=== PATIENT | male | born 1970 | race Caucasian/White ===

== ENCOUNTER 2022-05-28 14:00 | Inpatient (IN) | payer OTHER, SELFPAY ==
[2022-05-28 14:36] VITALS: BP 94/58; PULSE 81; RESP 16; TEMP 36; O2SAT 93; BMI 30.9
--- NOTE | 2022-05-28 15:20 | HP.PCM_ITS ---
HPI - General General Date of Admission: 05/28/22 Date of Service: 05/28/22 Chief Complaint: Here for rehabilitation, strengthening, prior to discharge home with . HPI Narrative CARMEL PETER, is a 52 Male who presents with followin04/28/2022 Admit to [facility] with mitral regurgitation, aortic insufficiency. 04/28/2022 1. Mechanical mitral valve replacement 2. Mechanical aortic valve replacement 3. Ascending aorta replacement 4. Aortic arch replacement 5. Complete MAZE 04/28/2022 Anterior chest tubes placed. 05/02/2022 Epinephrine, Levophed, Vasopressin, SVR persistently 500's. Atrial flutter treated with amiodarone bolus x 2, then amiodarone drip. 05/06/2022 Extubated, drowsy, unable to clear secretions. Reintubated in 2 hours. 05/09/2022 Extubated, BiPAP applied. 05/12/2022 Anterior chest tubes removed. 05/25/2022 Hemoglobin 7.0; 7.4. 05/26/2022 Hemoglobin 7.3. 05/27/2022 Acute blood loss anemia and iron deficiency anemia. H&H low but stable, remains above transfusion threshold. Continue iron supplementation. 05/27/2022 Hemoglobin 6.9. Transfuse 1 unit PRBC. 05/28/2022 Admit to TCU with debility, here for rehabilitation, strengthening, prior to discharge home with . [facility] Medical History (Updated 05/28/22 @ 15:[address] Sergio Kim MD) Alcohol abuse Aortic insufficiency Ascending aorta dilatation Atrial fibrillation Congenital heart disease Debility Hyperlipidemia Hypertension Mitral regurgitation Nonischemic cardiomyopathy Severe pulmonary hypertension Home Medications acetaminophen 325 mg tablet 325 mg PO Q6H PRN Pain 05/28/22 [History Last Taken Unknown] amiodarone 200 mg tablet 200 mg PO DAILY Heart 05/28/22 [History Last Taken Unknown] ascorbic acid (vitamin C) 500 mg tablet 500 mg PO DAILY Supplement 05/28/22 [History Last Taken Unknown] atorvastatin 40 mg tablet 40 mg PO QHS Cholesterol 05/28/22 [History Last Taken Unknown] ferrous sulfate 325 mg (65 mg iron) tablet 325 mg PO BID Supplement 05/28/22 [History Last Taken Unknown] lactulose 10 gram/15 mL oral syrup 20 g PO BID Check with primary doctor 05/28/22 [History Last Taken Unknown] metoprolol succinate 25 mg tablet,extended release 24 hr 25 mg PO DAILY BP 05/28/22 [History Last Taken Unknown] sildenafil 100 mg tablet 100 mg PO DAILY BP 05/28/22 [History Last Taken Unknown] tamsulosin 0.4 mg capsule 0.4 mg PO DAILY Retention 05/28/22 [History Last Taken Unknown] torsemide 20 mg tablet 40 mg PO DAILY Heart 05/28/22 [History Last Taken Unknown] trazodone 50 mg tablet 50 mg PO QHS Sleep 05/28/22 [History Last Taken Unknown] warfarin 2.5 mg tablet 2.5 mg PO DAILY Blood Thinner 05/28/22 [History Last Taken Unknown] Family History (Updated 05/28/22 @ 15:[address] Sergio Kim MD) Father Cancer Lung Surgical History (Updated 05/28/22 @ 15:[address] Sergio Kim MD) History of aortic arch replacement History of ascending aortic replacement History of implantable cardiac defibrillator (ICD) History of maze procedure History of mechanical aortic valve replacement History of mitral valve replacement with bioprosthetic valve History of mitral valve replacement with mechanical valve History of prior ablation treatment History of repair of congenital atrial septal defect (ASD) Social History (Updated 05/28/22 @ 15:[address] Sergio Kim MD) household members: spouse Smoking Status: Never smoker alcohol intake: current alcohol intake frequency: 3 or more drinks per day Alcohol type: beer details: Alcoholic. substance use type: does not use ROS Constitutional Constitutional: Denies chills, fever(s) or weight gain Eyes Eyes: Reports loss of vision ENT HEENT: Denies headache(s), nasal congestion or nasal discharge Cardiovascular Cardiovascular: Denies chest pain or palpitations Respiratory/Chest Respiratory/Chest: Denies cough, excessive phlegm production or shortness of breath with exertion Gastrointestinal Gastrointestinal: Denies abdominal pain, nausea or vomiting Genitourinary Genitourinary: Denies dysuria Musculoskeletal Musculoskeletal: Denies joint pain or joint swelling Integumentary Integumentary: Denies rash or wounds Neurologic Neurologic: Denies focal weakness, numbness or tingling Psychiatric Psychiatric: Denies anxiety, auditory hallucinations, depression, homicidal ideation or suicidal ideation Physical Exam Const alert General Appearance: cooperative HEENT normocephalic Eyes PERRL and EOMs intact bilaterally Neck supple, no JVD and no carotid bruits Resp normal respiratory effort, normal air movement and clear to auscultation bilaterally Cardio regular rate and regular rhythm GI normal to inspection, nondistended, normoactive bowel sounds, non-tender and non-distended Extremity normal capillary refill General Extremity: Negative for edema Skin no rashes or lesions noted General Skin Exam: no breakdown Psych affect normal Appearance: appropriate Assessment & Plan Assessment/Plan (1) Debility: (2) Mitral regurgitation: (3) Aortic insufficiency: (4) Alcohol abuse: (5) Hypertension: (6) Hyperlipidemia: (7) Atrial fibrillation: (8) Congenital heart disease: (9) Nonischemic cardiomyopathy: (10) Ascending aorta dilatation: (11) Severe pulmonary hypertension: PLAN: Plan 52 year old male with below past medical history hospitalized for mechanical MVR, mechanical AVR, ascending aorta replacement, aortic arch replacement, MAZE procedure, complicated by anemia requiring transfusion, admitted to TCU with debility, here for rehabilitation, strengthening, prior to discharge home with . * Debility - PT/OT. * Dysphagia - ST. * Pain - Tylenol 1000mg q6h prn pain (1-10). * Bowel - Lactulose 20gm bid. * Adult immunization - Administer pneumonia vaccine, covid19 vaccine, flu vaccine as appropriate. * DVT prophylaxis - already on warfarin. * Atrial fibrillation - Metoprolol succinate 25mg daily, Amiodarone 200mg daily, Warfarin 2.5mg daily, monitor INR. * Postoperative anemia - Ferrous sulfate 325mg bid, Vitamin C 500mg daily thru 06/12/2022. * Hyperlipidemia - Atorvastatin 40mg qhs. * Severe pulmonary hypertension - Sildenafil 100mg daily. * BPH - Tamsulosin 0.4mg daily. * Chronic diastolic heart failure - Metoprolol succinate 25mg daily, Torsemide 40mg daily, 1500ml fluid restriction. * Insomnia - Trazodone 50mg qhs, stable chronic nursing home use, GDR not recommended. * Vision loss - Schedule Ophth appointment.
[2022-05-28] MEDS: Ferrous Sulfate 325 MG Tablet PO (17:19)
[2022-05-28] MEDS: Lactulose 20 GM/30 ML PHA UDC PO (17:19)
--- NOTE | 2022-05-28 17:39 | NURSING ---
Warfarin order verified with Dr. Kim order was 12.5mg of Warfarin daily per Dr. Kim change to 5mg daily and Check INR daily until therapeutic.
[2022-05-28] MEDS: traZODone 50 MG Tablet PO (21:14)
[2022-05-28] MEDS: Atorvastatin Calcium 40 MG Tablet PO (21:14)
[2022-05-28] MEDS: Acetaminophen 325 MG Tablet PO (21:18)
[2022-05-28] MEDS: guaiFENesin Dm 10 ML UDC PO (23:37)
[2022-05-29] MEDS: Acetaminophen 325 MG Tablet PO (06:16)
[2022-05-29 06:17] VITALS: BP 100/61; PULSE 79
[2022-05-29] MEDS: Amiodarone 200 MG Tablet PO (06:17)
[2022-05-29] MEDS: Metoprolol(XL)Succ 25 MG Tablet PO (06:17)
[2022-05-29] MEDS: Lactulose 20 GM/30 ML PHA UDC PO ×2 (06:17→16:58)
[2022-05-29] MEDS: Furosemide 80 MG Tablet PO (06:17)
[2022-05-29 08:04] VITALS: BMI 30.9
[2022-05-29 08:05] LABS: Absolute Lymphocyte Count 1.27 X10^3/uL (0.83-4.51); Absolute Neutrophil Count 5.9 X10^3/uL (2.0-7.7); Basophil# 0.04 X10^3/uL; Basophil% 0.5 % (0-1); Eosinophils% 5.7 % (0-5); Hematocrit 26.9 % (40-54); Hemoglobin 8.3 g/dL (13.0-16.5); Lymphocyte # 1.27 X10^3/ul (0.83-4.51); Lymphocyte % 14.5 % (19-41); Mean Corp Hgb Conc 30.9 g/dL (32-36); Mean Corpuscular Hgb 25.5 pg (27.0-32.0); Mean Corpuscular Volume 82.8 fL (80-94); Mean Platelet Vol. 8.7 fl (6.2-12.0); Monocyte# 0.97 X10^3/uL; Monocyte% 11.1 % (0-10); NRBC Flagged by Analyzer 0 % (0-5); Neutrophil # 5.85 X10^3/uL (2.7-7.7); Neutrophil % 66.8 % (47-70); Platelet Count 334 K/mm3 (150-450); RBC Distribution Width CV 16.1 % (11.6-14.6); Red Blood Count 3.25 M/mm3 (4.6-6.2); White Blood Count 8.8 K/mm3 (4.4-11.0)
[2022-05-29] MEDS: Ferrous Sulfate 325 MG Tablet PO ×2 (08:18→16:58)
[2022-05-29] MEDS: Ascorbic Acid 500 MG Tablet PO (08:18)
[2022-05-29] MEDS: Tamsulosin HCl 0.4 MG Capsule PO (08:18)
[2022-05-29] MEDS: guaiFENesin Dm 10 ML UDC PO ×2 (08:40→21:38)
[2022-05-29 08:48] LABS: Anion Gap 7 (5-15); BUN 27 mg/dL (7-18); BUN/Creat Ratio 28.3 RATIO (10-20); Calcium,Total 8.6 mg/dL (8.5-10.1); Chloride 96 mmol/L (98-107); Creatinine, Serum 0.96 mg/dL (0.70-1.30); EST Glomerular Filtration Rate 88 mL/min (>60); Est Glom Filt Rate - Afr Amer 106 mL/min (>60); Estimated Creatinine Clearance 100.57 ml/min; Glucose 106 mg/dL (74-106); Potassium 3.6 mmol/L (3.5-5.1); Sodium Level 130 mmol/L (136-145)
[2022-05-29 09:05] LABS: International Normalized Ratio 3.7; Prothrombin Time (Protime)PT. 36.4 SECONDS (11.7-14.9)
[2022-05-29] MEDS: Tuberculin,Purif.prot.deriv. 50 TU/ML Vial 0.1 ML ID (10:26)
[2022-05-29] MEDS: traMADol 50 MG Tablet PO ×2 (14:01→21:30)
[2022-05-29] MEDS: Acetaminophen 500 MG Tablet 1000 MG PO ×2 (14:01→21:31)
[2022-05-29 14:02] VITALS: BP 96/56; PULSE 80; RESP 18; TEMP 36.1; O2SAT 96
[2022-05-29 21:00] VITALS: PULSE 80; RESP 18; O2SAT 94
[2022-05-29] MEDS: Atorvastatin Calcium 40 MG Tablet PO (21:31)
[2022-05-29] MEDS: traZODone 50 MG Tablet PO (21:32)
[2022-05-30] MEDS: Acetaminophen 500 MG Tablet 1000 MG PO ×3 (05:46→21:05)
[2022-05-30 05:47] VITALS: BP 97/61; PULSE 78
[2022-05-30 05:47] LABS: Absolute Neutrophil Count 5.6 X10^3/uL (2.0-7.7); Basophil# 0.04 X10^3/uL; Basophil% 0.5 % (0-1); Eosinophil# 0.52 X10^3/uL; Eosinophils% 6.3 % (0-5); Hematocrit 27.1 % (40-54); Hemoglobin 8.2 g/dL (13.0-16.5); Lymphocyte % 15.7 % (19-41); Mean Corp Hgb Conc 30.3 g/dL (32-36); Mean Corpuscular Hgb 25.1 pg (27.0-32.0); Mean Corpuscular Volume 82.9 fL (80-94); Mean Platelet Vol. 8.8 fl (6.2-12.0); Monocyte# 0.79 X10^3/uL; Monocyte% 9.5 % (0-10); NRBC Flagged by Analyzer 0 % (0-5); Neutrophil # 5.55 X10^3/uL (2.7-7.7); Neutrophil % 66.8 % (47-70); Platelet Count 323 K/mm3 (150-450); RBC Distribution Width SD 48.6 fl (35.1-43.9); Red Blood Count 3.27 M/mm3 (4.6-6.2); White Blood Count 8.3 K/mm3 (4.4-11.0)
[2022-05-30] MEDS: Amiodarone 200 MG Tablet PO (05:47)
[2022-05-30] MEDS: Lactulose 20 GM/30 ML PHA UDC PO (05:47)
[2022-05-30] MEDS: Furosemide 80 MG Tablet PO (05:47)
[2022-05-30 06:14] LABS: Anion Gap 8 (5-15); BUN 23 mg/dL (7-18); Calcium,Total 8.5 mg/dL (8.5-10.1); Chloride 97 mmol/L (98-107); Creatinine, Serum 0.74 mg/dL (0.70-1.30); EST Glomerular Filtration Rate 117 mL/min (>60); Est Glom Filt Rate - Afr Amer 142 mL/min (>60); Estimated Creatinine Clearance 130.47 ml/min; Glucose 94 mg/dL (74-106); Potassium 3.5 mmol/L (3.5-5.1); Sodium Level 133 mmol/L (136-145)
[2022-05-30] MEDS: Ascorbic Acid 500 MG Tablet PO (08:33)
[2022-05-30] MEDS: Tamsulosin HCl 0.4 MG Capsule PO (08:33)
[2022-05-30] MEDS: Ferrous Sulfate 325 MG Tablet PO ×2 (08:33→16:15)
[2022-05-30] MEDS: guaiFENesin Dm 10 ML UDC PO ×3 (08:33→21:06)
[2022-05-30 10:29] LABS: Prothrombin Time (Protime)PT. 40.3 SECONDS (11.7-14.9)
[2022-05-30 10:35] LABS: International Normalized Ratio 4.2
[2022-05-30 14:27] VITALS: BP 103/59; PULSE 80; RESP 17; TEMP 35.9; O2SAT 99
[2022-05-30] MEDS: traZODone 50 MG Tablet PO (21:05)
[2022-05-30] MEDS: Atorvastatin Calcium 40 MG Tablet PO (21:05)
[2022-05-30] MEDS: traMADol 50 MG Tablet PO (21:06)
[2022-05-31] MEDS: traMADol 50 MG Tablet PO (05:49)
[2022-05-31] MEDS: Acetaminophen 500 MG Tablet 1000 MG PO ×3 (05:49→21:29)
[2022-05-31] MEDS: Furosemide 80 MG Tablet PO (05:49)
[2022-05-31] MEDS: Lactulose 20 GM/30 ML PHA UDC PO ×2 (05:50→17:33)
[2022-05-31] MEDS: Amiodarone 200 MG Tablet PO (05:50)
[2022-05-31 05:53] VITALS: BP 101/64; PULSE 80
[2022-05-31] MEDS: Metoprolol(XL)Succ 25 MG Tablet PO (05:53)
[2022-05-31] MEDS: Ferrous Sulfate 325 MG Tablet PO ×2 (08:18→17:33)
[2022-05-31] MEDS: Tamsulosin HCl 0.4 MG Capsule PO (08:18)
[2022-05-31] MEDS: Ascorbic Acid 500 MG Tablet PO (08:18)
[2022-05-31 11:31] LABS: International Normalized Ratio 3.9
--- NOTE | 2022-05-31 12:08 | PCM.PN.DRR ---
TCU RX Drug Regimen Review Subjective: 52 YOM admitted to TCU 05/28/22 S/P prolonged hospitalization at [facility]. Patient was at [facility] for valve replacements. Admitted to TCU for strengthening and rehabilitation prior to discharge home where he resides with his . Objective: Allergies bee venom protein (honey bee) [bee sting] Allergy (Verified 05/28/22 16:30) Swelling mushroom [mushrooms] Allergy (Verified 05/28/22 16:30) Vomiting Current Medications Generic Name Dose Route Start Last Admin Trade Name Freq PRN Reason Stop Dose Admin Acetaminophen 1,000 mg 05/29/22 14:00 05/31/22 05:49 Acetaminophen 500 Mg Tablet PO 1,000 mg Q8 MARK Administration Amiodarone HCl 200 mg 05/29/22 06:00 05/31/22 05:50 Amiodarone 200 Mg Tablet PO 200 mg DAILY MARK Administration Ascorbic Acid 500 mg 05/29/22 08:00 05/31/22 08:18 Ascorbic Acid 500 Mg Tablet PO 06/12/22 08:01 500 mg DAILYCM MARK Administration Atorvastatin Calcium 40 mg 05/28/22 22:00 05/30/22 21:05 Atorvastatin Calcium 40 Mg Tablet PO 40 mg QHS MARK Administration Ferrous Sulfate 325 mg 05/28/22 17:00 05/31/22 08:18 Ferrous Sulfate 325 Mg Tablet PO 06/11/22 17:01 325 mg BIDCM MARK Administration Furosemide 80 mg 05/29/22 06:00 05/31/22 05:49 Furosemide 80 Mg Tablet PO 80 mg DAILY MARK Administration Guaifenesin 10 ml 05/28/22 21:08 05/30/22 21:06 Guaifenesin Dm 10 Ml Udc PO 10 ml Q6H PRN PRN Administration COUGH Lactulose 20 gm 05/28/22 18:00 05/31/22 05:50 Lactulose 20 Gm/30 Ml Pha Udc PO 05/31/22 18:01 20 gm BID MARK Administration Metoprolol Succinate 25 mg 05/29/22 06:00 05/31/22 05:53 Metoprolol(Xl)Succ 25 Mg Tablet PO 25 mg DAILY MARK Administration Tamsulosin HCl 0.4 mg 05/29/22 08:30 05/31/22 08:18 Tamsulosin Hcl 0.4 Mg Capsule PO 0.4 mg DAILY@0830 MARK Administration Tramadol HCl 50 mg 05/29/22 13:27 05/31/22 05:49 Tramadol 50 Mg Tablet PO 50 mg Q6H PRN PRN Administration Pain Score 4-10 Trazodone HCl 50 mg 05/28/22 22:00 05/30/22 21:05 Trazodone 50 Mg Tablet PO 50 mg QHS MARK Administration Tuberculin PPD 0.1 ml 06/05/22 10:00 Tuberculin,Purif.Prot.Deriv. 50 Tu/Ml Vial ID 06/05/22 10:01 X1 ONE Problem List (Last Updated 05/28/22 @ 15:[address] Sergio Kim MD) Severe pulmonary hypertension (Acute) Ascending aorta dilatation (Acute) Nonischemic cardiomyopathy (Acute) Congenital heart disease (Acute) Atrial fibrillation (Acute) Hyperlipidemia (Acute) Hypertension (Chronic) Alcohol abuse (Acute) Aortic insufficiency (Acute) Mitral regurgitation (Acute) Debility (Acute) Vital Signs Temp Pulse Resp BP Pulse Ox O2 Del Method 96.7 F L 80 17 101/64 99 Room Air 05/30/22 14:27 05/31/22 05:53 05/30/22 14:27 05/31/22 05:53 05/30/22 14:27 05/30/22 14:27 Oxygen Delivery Method Room Air Weight: 106.141 kg Body Mass Index (BMI) 30.9 Sodium 133 mmol/L (136-145) L 05/30/22 05:35 Potassium 3.5 mmol/L (3.5-5.1) 05/30/22 05:35 Chloride 97 mmol/L (98-107) L 05/30/22 05:35 Carbon Dioxide 28.0 mmol/L (21.0-32.0) 05/30/22 05:35 Anion Gap 8 (5-15) 05/30/22 05:35 BUN 23 mg/dL (7-18) H 05/30/22 05:35 Creatinine 0.74 mg/dL (0.70-1.30) 05/30/22 05:35 Est GFR (MDRD) Af Amer 142 mL/min (>60) 05/30/22 05:35 Est GFR (MDRD) Non-Af 117 mL/min (>60) 05/30/22 05:35 BUN/Creatinine Ratio 31.0 RATIO (10-20) H 05/30/22 05:35 Glucose 94 mg/dL (74-106) 05/30/22 05:35 Assessment/Plan: 1. Pain: Tylenol 1000mg PO Q8h, Tramadol 50mg PO Q6h PRN Pain 4-10. Please continue to monitor for increased/decreased S/S pain, PRN medication usage, oversedation with Tramadol use. Please consider obtaining LFTs given scheduled Tylenol use and history of alcohol abuse, thank you. 2.Atrial Fibrillation, S/P valve replacements, CHF: Amiodarone 200mg PO Daily, Lipitor 40mg PO QHS, Lasix 80mg PO Daily, Toprol XL 25mg PO Daily. Please continue to monitor BP (range 94-103/56-64), pulse (range 78-81), lipid panel annually or sooner if clinically indicated. Please continue to monitor INR closely and resume Warfarin once INR within therapeutic range again (Note: Warfarin held d/t increased INR, INR 3.9 today). 3. Post Operative Anemia: Ferrous sulfate 325mg PO BID thru 06/11/22 and ascorbic acid 500mg PO Daily thru 06/12/22. Please continue to monitor for upset stomach/nausea, H/H (last hgb 8.2, Hct 27.1 on 05/30), S/S bleeding. 4. BPH: Flomax 0.4mg PO Daily. Please continue to monitor urinary flow, S/S urinary retention, BP. 5. Cough: Guaifenesin 10mL PO Q6h PRN. Please continue to monitor for medication effectiveness, S/S developing infection. 6. Insomnia: Trazodone 50mg PO QHS. Please continue to monitor medication effectiveness, heart rate, BP. 7. Bowel: Lactulose 20g PO BID. Please continue to monitor I/O, electrolytes as clinically indicated. - The patient has not had a documented bowel movement since admission. Please continue to monitor and consider giving medications to help facilitate a bowel movement if the patient does not have a BM in another 24hrs, thank you. Assessment/Plan for indications treated with psychotropic medications: The patient is not currently on any psychotropic medications at time of review. Medical chart and medication regimen reviewed. The following medication irregularities or issues were identified: 1. Pain: On Tylenol 1000mg PO Q8h. Patient with history of alcohol abuse. Please consider obtaining LFTs given scheduled Tylenol use and history of alcohol abuse if clinically indicated, thank you. 2. Warfarin: INR was elevated, INR today is 3.9, which is still above goal range. Please continue to monitor INR daily and resume once in therapeutic range, thank you. 3. Pulmonary Hypertension: Per H/P, patient has pulmonary hypertension. Per H/P, pt taking sildenafil 100mg PO Daily for this. Medication is not ordered and active on medication list. If patient is to be on this medication, please order, thank you. Date of Note:: 05/31/22
[2022-05-31] MEDS: guaiFENesin Dm 10 ML UDC PO ×2 (13:26→21:29)
--- NOTE | 2022-05-31 14:22 | NURSING ---
COVID 19 booster offered and education about vaccine provided. Resident does not want at this time.
[2022-05-31 14:32] VITALS: BP 102/60; PULSE 80; RESP 16; TEMP 36.1; O2SAT 97
--- NOTE | 2022-05-31 15:25 | CASEMGMT ---
Social Work Met with patient to complete initial assessment. Introduced self and role. Updated contacts. Discussed code status and MOLST form. Pt confirms full code. MOLST placed in folder. Educated to [facility] insurance with NRD 06/04 and continued stay is not guaranteed. Pt's goal is to return home closer to PLOF and be able to return to work. works daytime caregiver as well. SW offered assistance with finances or FMLA, if needed. Pt denied stating he has it taken care of. See SW assessment for details on alcohol use. Pt provided home phone number for . SW called the number provided and the voicemail was unidentified. SW left generic message requesting return call. Pt has no other contacts listed in chart. SW to continue to follow for DC planning. ALEX AmbrizW
--- NOTE | 2022-05-31 16:39 | CHAPLAIN ---
Type of Pastoral Visit _x__ Initial Visit ___ Follow-up Visit ___ On-call Visit ___ General Patient Visit ___ Spiritual Assessment ___ Family Conference ___ Bereavement ___ Rapid Response ___ Code Blue ___ Other (describe below) Pastoral Care Referral From _x__ Patient ___ Family ___ Nurse ___ Physician ___ After School Counselor ___ Cpc ___ Other (describe below) Sacrament/Intervention _x__ Active listening ___ Anointing ___ Holiness ___ Bereavement ___ Communion ___ Nayeli exploration ___ _x__ Life review _x__ Prayer ___ Reconciliation ___ Sacrament of Sick _x__ Supportive presence ___ Wedding ___ Other (describe below) Pastoral Comments patient is resting in bed; pt gives some details on health. surgery, and rehab of recent weeks; pt has had some hallucinations while in the hospital and has some concerns about that and the difficulty he is having with vision in one eye; pt states his greatest support and help is family; pt does not express other resources for support but is open to visits and prayer; pt began to cough and so visit ended as not to exasperate the situation; pt states he will be fine and has call button in hand
[2022-05-31 21:00] VITALS: PULSE 83; RESP 16; O2SAT 95
[2022-05-31] MEDS: Atorvastatin Calcium 40 MG Tablet PO (21:29)
[2022-05-31] MEDS: traZODone 50 MG Tablet PO (21:29)
[2022-06-01 05:56] VITALS: BP 109/59; PULSE 79
[2022-06-01] MEDS: Metoprolol(XL)Succ 25 MG Tablet PO (05:56)
[2022-06-01] MEDS: Acetaminophen 500 MG Tablet 1000 MG PO ×3 (05:57→20:27)
[2022-06-01] MEDS: Amiodarone 200 MG Tablet PO (05:57)
[2022-06-01] MEDS: Furosemide 80 MG Tablet PO (05:57)
[2022-06-01 06:00] VITALS: BMI 30.7
[2022-06-01] MEDS: Ascorbic Acid 500 MG Tablet PO (07:52)
[2022-06-01] MEDS: Ferrous Sulfate 325 MG Tablet PO ×2 (07:52→17:53)
[2022-06-01] MEDS: Tamsulosin HCl 0.4 MG Capsule PO (07:52)
[2022-06-01 09:16] VITALS: PULSE 83; O2SAT 98
[2022-06-01 09:34] LABS: International Normalized Ratio 3.7; Prothrombin Time (Protime)PT. 36.3 SECONDS (11.7-14.9)
[2022-06-01] MEDS: traMADol 50 MG Tablet PO (11:49)
[2022-06-01 14:42] VITALS: BP 100/55; PULSE 80; RESP 16; TEMP 36.4; O2SAT 94
[2022-06-01 15:00] VITALS: BMI 30.7
[2022-06-01] MEDS: Atorvastatin Calcium 40 MG Tablet PO (20:27)
[2022-06-01] MEDS: guaiFENesin Dm 10 ML UDC PO (20:27)
[2022-06-01] MEDS: traZODone 50 MG Tablet PO (20:27)
[2022-06-02 05:48] LABS: International Normalized Ratio 2.5
[2022-06-02 06:00] VITALS: BMI 30.9
[2022-06-02 06:20] VITALS: BP 105/57; PULSE 80
[2022-06-02 06:23] VITALS: PULSE 80
[2022-06-02] MEDS: Metoprolol(XL)Succ 25 MG Tablet PO (06:23)
[2022-06-02] MEDS: Furosemide 80 MG Tablet PO (06:23)
[2022-06-02] MEDS: Amiodarone 200 MG Tablet PO (06:23)
[2022-06-02] MEDS: Acetaminophen 500 MG Tablet 1000 MG PO ×3 (06:23→21:36)
[2022-06-02] MEDS: Tamsulosin HCl 0.4 MG Capsule PO (07:59)
[2022-06-02] MEDS: Ascorbic Acid 500 MG Tablet PO (07:59)
[2022-06-02] MEDS: Ferrous Sulfate 325 MG Tablet PO ×2 (07:59→17:29)
--- NOTE | 2022-06-02 08:29 | NURSING ---
Lasting Floorworker Note; Activity Asset: Dawson Ruano is independent in his choice of daily activities. Alden stated he prefers to do his own activities in his room at this time such as watching TV, resting or visiting w/family. His family will bring his cellphone and reading glass. Staff will continue to do social visit and encourage small group activities for social well-being.
[2022-06-02 09:15] VITALS: O2SAT 98
--- NOTE | 2022-06-02 12:16 | CASEMGMT ---
Plan of care meeting held today with pt and pt present. IDT team reviewed therapy progress with PT/OT/ST. Per therapy, pt continues to progress but does fatigue quickly. At time of discharge pt plans to return home. Pt states she does work nights and pt sister will come during the day to assist pt as needed while sleeps. states they have a village to assist pt once he returns home. Goal if for pt to be as independent as possible prior to return home. SW updated pt that NRD with insurance is 06/04 and continued stay is not guaranteed. SW will continue to follow for discharge planning. JAMEY Bunn
[2022-06-02] MEDS: traMADol 50 MG Tablet PO (12:46)
[2022-06-02 14:01] VITALS: BP 116/65; PULSE 88; RESP 21; TEMP 35.9; O2SAT 97
[2022-06-02] MEDS: guaiFENesin Dm 10 ML UDC PO (21:34)
[2022-06-02] MEDS: traZODone 50 MG Tablet PO (21:36)
[2022-06-02] MEDS: Atorvastatin Calcium 40 MG Tablet PO (21:36)
[2022-06-03 05:47] LABS: International Normalized Ratio 1.9; Prothrombin Time (Protime)PT. 21.2 SECONDS (11.7-14.9)
[2022-06-03] MEDS: Furosemide 80 MG Tablet PO (05:58)
[2022-06-03] MEDS: Acetaminophen 500 MG Tablet 1000 MG PO ×3 (05:58→20:47)
[2022-06-03 05:59] VITALS: BP 96/46; PULSE 62
[2022-06-03 06:00] VITALS: BMI 30.7
--- NOTE | 2022-06-03 06:03 | NURSING ---
BP 96/46 this AM. Amiodarone, Toprol held. Continues on 1500cc Fluid restriction and receiving Lasix. Will continue to monitor.
[2022-06-03] MEDS: guaiFENesin Dm 10 ML UDC PO ×2 (06:59→20:48)
[2022-06-03] MEDS: Ferrous Sulfate 325 MG Tablet PO ×2 (07:48→17:17)
[2022-06-03] MEDS: Tamsulosin HCl 0.4 MG Capsule PO (07:48)
[2022-06-03] MEDS: Ascorbic Acid 500 MG Tablet PO (07:48)
--- NOTE | 2022-06-03 08:08 | NURSING ---
Addendum entered by Sofya Diez 06/03/22 10:48: Pt Back from appt. No new orders at this time. Per Dr. Hodgson pt had stroke behind eye vision may or may not come back. Next Appt. July 09 2022 @ 0850. Original Note: Pt off unit for Dr. ruiz at [facility].
--- NOTE | 2022-06-03 14:11 | MDS.RN ---
Pain interview for brooks 06/04/22
[2022-06-03 14:16] VITALS: BP 104/55; PULSE 82; RESP 17; TEMP 36; O2SAT 97
[2022-06-03 20:40] VITALS: PULSE 84; RESP 18; O2SAT 96
[2022-06-03] MEDS: traZODone 50 MG Tablet PO (20:47)
[2022-06-03] MEDS: traMADol 50 MG Tablet PO (20:47)
[2022-06-03] MEDS: Atorvastatin Calcium 40 MG Tablet PO (20:48)
[2022-06-04 06:00] VITALS: BMI 30.7
[2022-06-04 06:03] VITALS: BP 91/62; PULSE 79
[2022-06-04] MEDS: Metoprolol(XL)Succ 25 MG Tablet PO (06:03)
[2022-06-04] MEDS: Furosemide 80 MG Tablet PO (06:04)
[2022-06-04] MEDS: guaiFENesin Dm 10 ML UDC PO ×2 (06:04→14:32)
[2022-06-04] MEDS: Acetaminophen 500 MG Tablet 1000 MG PO ×3 (06:04→20:28)
[2022-06-04] MEDS: Amiodarone 200 MG Tablet PO (06:04)
[2022-06-04 06:06] LABS: International Normalized Ratio 2.1; Prothrombin Time (Protime)PT. 23.1 SECONDS (11.7-14.9)
[2022-06-04] MEDS: Tamsulosin HCl 0.4 MG Capsule PO (09:27)
[2022-06-04] MEDS: Ferrous Sulfate 325 MG Tablet PO ×2 (09:28→17:56)
[2022-06-04] MEDS: Ascorbic Acid 500 MG Tablet PO (09:28)
--- NOTE | 2022-06-04 13:07 | NURSING ---
physician practice coordinator Note; MDS Complete
[2022-06-04 16:00] VITALS: BP 102/60; PULSE 80; RESP 14; TEMP 36.3; O2SAT 97
[2022-06-04] MEDS: traZODone 50 MG Tablet PO (20:28)
[2022-06-04] MEDS: Atorvastatin Calcium 40 MG Tablet PO (20:28)
[2022-06-05] MEDS: Acetaminophen 500 MG Tablet 1000 MG PO ×3 (04:37→22:14)
[2022-06-05 04:38] VITALS: BP 92/50; PULSE 87
[2022-06-05] MEDS: Amiodarone 200 MG Tablet PO (04:38)
[2022-06-05 06:00] VITALS: BMI 31.0
[2022-06-05 07:34] LABS: Absolute Lymphocyte Count 1.26 X10^3/uL (0.83-4.51); Absolute Neutrophil Count 4.1 X10^3/uL (2.0-7.7); Basophil# 0.03 X10^3/uL; Basophil% 0.5 % (0-1); Eosinophil# 0.21 X10^3/uL; Eosinophils% 3.4 % (0-5); Hematocrit 27.8 % (40-54); Hemoglobin 8.5 g/dL (13.0-16.5); Lymphocyte # 1.26 X10^3/ul (0.83-4.51); Lymphocyte % 20.3 % (19-41); Mean Corp Hgb Conc 30.6 g/dL (32-36); Mean Corpuscular Hgb 25.6 pg (27.0-32.0); Mean Corpuscular Volume 83.7 fL (80-94); Mean Platelet Vol. 8.7 fl (6.2-12.0); Monocyte% 9.7 % (0-10); NRBC Flagged by Analyzer 0 % (0-5); Neutrophil # 4.06 X10^3/uL (2.7-7.7); Neutrophil % 65.5 % (47-70); Platelet Count 270 K/mm3 (150-450); RBC Distribution Width CV 16.5 % (11.6-14.6); RBC Distribution Width SD 50.3 fl (35.1-43.9); Red Blood Count 3.32 M/mm3 (4.6-6.2); White Blood Count 6.2 K/mm3 (4.4-11.0)
[2022-06-05] MEDS: Ferrous Sulfate 325 MG Tablet PO ×2 (07:43→17:22)
[2022-06-05] MEDS: Ascorbic Acid 500 MG Tablet PO (07:43)
[2022-06-05] MEDS: Tamsulosin HCl 0.4 MG Capsule PO (07:44)
[2022-06-05 07:46] LABS: Anion Gap 7 (5-15); BUN 11 mg/dL (7-18); BUN/Creat Ratio 11.3 RATIO (10-20); Calcium,Total 8.3 mg/dL (8.5-10.1); Chloride 101 mmol/L (98-107); Creatinine, Serum 0.97 mg/dL (0.70-1.30); EST Glomerular Filtration Rate 86 mL/min (>60); Est Glom Filt Rate - Afr Amer 104 mL/min (>60); Estimated Creatinine Clearance 99.53 ml/min; Glucose 85 mg/dL (74-106); Potassium 3.3 mmol/L (3.5-5.1); Sodium Level 136 mmol/L (136-145)
[2022-06-05 08:50] LABS: International Normalized Ratio 2.3; Prothrombin Time (Protime)PT. 24.8 SECONDS (11.7-14.9)
--- NOTE | 2022-06-05 11:08 | NURSING ---
dr cowart updated on potassium level 3.3, new order to give 40meq today and start daily 20meq tomorrow. recheck labs on Tuesday.
[2022-06-05] MEDS: Potassium Chloride Oral Tablet 20 MEQ 40 MEQ PO (11:44)
[2022-06-05] MEDS: Tuberculin,Purif.prot.deriv. 50 TU/ML Vial 0.1 ML ID (11:44)
--- NOTE | 2022-06-05 14:27 | NURSING ---
Potassium 3.[address] Eastman made aware and orders 1x dose of potassium 40meq and 20 meq daily and a recheck BMP.
[2022-06-05] MEDS: guaiFENesin Dm 10 ML UDC PO (14:54)
[2022-06-05 16:00] VITALS: BP 104/55; PULSE 84; RESP 18; TEMP 36.5; O2SAT 95
[2022-06-05] MEDS: Atorvastatin Calcium 40 MG Tablet PO (22:14)
[2022-06-05] MEDS: traZODone 50 MG Tablet PO (22:14)
[2022-06-05] MEDS: traMADol 50 MG Tablet PO (22:15)
[2022-06-06] MEDS: Acetaminophen 500 MG Tablet 1000 MG PO ×3 (05:47→21:43)
[2022-06-06] MEDS: Furosemide 80 MG Tablet PO (05:47)
[2022-06-06 05:48] VITALS: BP 104/60; PULSE 83
[2022-06-06] MEDS: Metoprolol(XL)Succ 25 MG Tablet PO (05:48)
[2022-06-06] MEDS: guaiFENesin Dm 10 ML UDC PO ×2 (05:52→21:43)
[2022-06-06 06:00] VITALS: BMI 31.0
[2022-06-06] MEDS: Ascorbic Acid 500 MG Tablet PO (08:02)
[2022-06-06] MEDS: Ferrous Sulfate 325 MG Tablet PO ×2 (08:02→18:04)
[2022-06-06] MEDS: Tamsulosin HCl 0.4 MG Capsule PO (08:02)
[2022-06-06] MEDS: Amiodarone 200 MG Tablet PO (08:02)
[2022-06-06] MEDS: Potassium Chloride Oral Tablet 20 MEQ PO (08:03)
[2022-06-06 16:00] VITALS: BP 98/51; PULSE 81; RESP 16; TEMP 36.6; O2SAT 99
[2022-06-06] MEDS: traMADol 50 MG Tablet PO (21:44)
[2022-06-06] MEDS: traZODone 50 MG Tablet PO (21:44)
[2022-06-06] MEDS: Atorvastatin Calcium 40 MG Tablet PO (21:44)
[2022-06-07 06:00] VITALS: BP 92/54; PULSE 82; BMI 31.0
[2022-06-07] MEDS: Acetaminophen 500 MG Tablet 1000 MG PO ×3 (06:00→21:23)
[2022-06-07] MEDS: traMADol 50 MG Tablet PO ×2 (06:01→21:23)
[2022-06-07] MEDS: guaiFENesin Dm 10 ML UDC PO ×2 (06:01→22:55)
--- NOTE | 2022-06-07 06:03 | NURSING ---
Toprol XL and Furosemide held at this time d/t low BP. Pt is asymptomatic. Will report to oncoming nurse and continue to monitor.
[2022-06-07 06:57] LABS: Anion Gap 6 (5-15); BUN 11 mg/dL (7-18); BUN/Creat Ratio 12.5 RATIO (10-20); Calcium,Total 8.2 mg/dL (8.5-10.1); Chloride 105 mmol/L (98-107); Creatinine, Serum 0.88 mg/dL (0.70-1.30); EST Glomerular Filtration Rate 96 mL/min (>60); Est Glom Filt Rate - Afr Amer 117 mL/min (>60); Estimated Creatinine Clearance 109.71 ml/min; Glucose 84 mg/dL (74-106); Potassium 3.6 mmol/L (3.5-5.1); Sodium Level 138 mmol/L (136-145)
[2022-06-07] MEDS: Amiodarone 200 MG Tablet PO (07:57)
[2022-06-07] MEDS: Ferrous Sulfate 325 MG Tablet PO ×2 (07:57→17:15)
[2022-06-07] MEDS: Potassium Chloride Oral Tablet 20 MEQ PO (07:57)
[2022-06-07] MEDS: Tamsulosin HCl 0.4 MG Capsule PO (07:57)
[2022-06-07] MEDS: Ascorbic Acid 500 MG Tablet PO (07:57)
[2022-06-07 07:59] VITALS: BP 95/54; PULSE 83
[2022-06-07 15:19] VITALS: BP 113/71; PULSE 82; RESP 16; TEMP 36.4; O2SAT 98
[2022-06-07 20:10] VITALS: O2SAT 96
[2022-06-07] MEDS: traZODone 50 MG Tablet PO (21:23)
[2022-06-07] MEDS: Atorvastatin Calcium 40 MG Tablet PO (21:23)
[2022-06-08 05:35] VITALS: BP 107/59; PULSE 80
[2022-06-08] MEDS: Furosemide 80 MG Tablet PO (05:35)
[2022-06-08] MEDS: Metoprolol(XL)Succ 25 MG Tablet PO (05:35)
[2022-06-08] MEDS: Acetaminophen 500 MG Tablet 1000 MG PO ×3 (05:35→20:32)
[2022-06-08 05:50] LABS: Prothrombin Time (Protime)PT. 30.6 SECONDS (11.7-14.9)
--- NOTE | 2022-06-08 06:54 | MDS.RN ---
Information for the mds was obtained from review of the clinical record, interview of resident, staff, and direct observation of resident's care.
[2022-06-08 07:00] VITALS: BMI 31.1
[2022-06-08] MEDS: Tamsulosin HCl 0.4 MG Capsule PO (08:25)
[2022-06-08] MEDS: Ferrous Sulfate 325 MG Tablet PO ×2 (08:25→16:55)
[2022-06-08] MEDS: Ascorbic Acid 500 MG Tablet PO (08:25)
[2022-06-08] MEDS: Potassium Chloride Oral Tablet 20 MEQ PO (08:25)
[2022-06-08] MEDS: Amiodarone 200 MG Tablet PO (08:25)
[2022-06-08 09:42] VITALS: BMI 31.1
[2022-06-08 11:15] VITALS: PULSE 80; O2SAT 93
[2022-06-08 14:30] VITALS: BP 91/58; PULSE 81; RESP 17; TEMP 36.3; O2SAT 96
[2022-06-08] MEDS: Atorvastatin Calcium 40 MG Tablet PO (20:32)
[2022-06-08] MEDS: traZODone 50 MG Tablet PO (20:32)
[2022-06-08] MEDS: guaiFENesin Dm 10 ML UDC PO (20:32)
[2022-06-09] MEDS: Acetaminophen 500 MG Tablet 1000 MG PO ×3 (04:53→20:57)
[2022-06-09 04:55] VITALS: BP 104/55; PULSE 82
[2022-06-09] MEDS: Furosemide 80 MG Tablet PO (04:55)
[2022-06-09] MEDS: Metoprolol(XL)Succ 25 MG Tablet PO (04:55)
[2022-06-09 06:00] VITALS: BMI 31.1
[2022-06-09] MEDS: Potassium Chloride Oral Tablet 20 MEQ PO (07:39)
[2022-06-09] MEDS: Ferrous Sulfate 325 MG Tablet PO ×2 (07:39→17:32)
[2022-06-09] MEDS: Amiodarone 200 MG Tablet PO (07:39)
[2022-06-09] MEDS: Tamsulosin HCl 0.4 MG Capsule PO (07:40)
[2022-06-09] MEDS: Ascorbic Acid 500 MG Tablet PO (07:40)
[2022-06-09] MEDS: traMADol 50 MG Tablet PO (12:49)
[2022-06-09] MEDS: guaiFENesin Dm 10 ML UDC PO ×2 (12:49→20:55)
[2022-06-09 15:50] VITALS: BP 96/57; PULSE 80; RESP 16; TEMP 36.4; O2SAT 95
[2022-06-09] MEDS: traZODone 50 MG Tablet PO (20:57)
[2022-06-09] MEDS: Atorvastatin Calcium 40 MG Tablet PO (20:57)
[2022-06-09 21:00] VITALS: PULSE 81; RESP 16; O2SAT 98
[2022-06-10] MEDS: Acetaminophen 500 MG Tablet 1000 MG PO ×3 (05:31→20:55)
[2022-06-10 05:35] VITALS: BP 97/58; PULSE 80
[2022-06-10 06:00] VITALS: BMI 31.1
[2022-06-10 06:26] LABS: International Normalized Ratio 3.5; Prothrombin Time (Protime)PT. 34.8 SECONDS (11.7-14.9)
[2022-06-10] MEDS: Potassium Chloride Oral Tablet 20 MEQ PO (08:41)
[2022-06-10] MEDS: Tamsulosin HCl 0.4 MG Capsule PO (08:41)
[2022-06-10] MEDS: Ascorbic Acid 500 MG Tablet PO (08:42)
[2022-06-10] MEDS: Amiodarone 200 MG Tablet PO (08:42)
[2022-06-10] MEDS: Ferrous Sulfate 325 MG Tablet PO ×2 (08:42→16:45)
[2022-06-10 09:34] VITALS: PULSE 82; O2SAT 94
[2022-06-10 10:00] VITALS: BMI 31.1
[2022-06-10 11:05] LABS: Bedside Glucose 84 mg/dL (74-106)
[2022-06-10 15:51] VITALS: BP 104/59; PULSE 80; RESP 18; TEMP 36.5; O2SAT 97
[2022-06-10] MEDS: traZODone 50 MG Tablet PO (20:55)
[2022-06-10] MEDS: guaiFENesin Dm 10 ML UDC PO (20:55)
[2022-06-10] MEDS: Atorvastatin Calcium 40 MG Tablet PO (20:56)
[2022-06-11] MEDS: Acetaminophen 500 MG Tablet 1000 MG PO ×3 (05:09→20:44)
[2022-06-11 05:10] VITALS: BP 108/47; PULSE 82
[2022-06-11 06:00] VITALS: BMI 31.5
[2022-06-11 06:18] LABS: International Normalized Ratio 2.4
[2022-06-11] MEDS: Amiodarone 200 MG Tablet PO (08:04)
[2022-06-11] MEDS: Potassium Chloride Oral Tablet 20 MEQ PO (08:04)
[2022-06-11] MEDS: Ferrous Sulfate 325 MG Tablet PO ×2 (08:04→17:27)
[2022-06-11] MEDS: Tamsulosin HCl 0.4 MG Capsule PO (08:04)
[2022-06-11] MEDS: Ascorbic Acid 500 MG Tablet PO (08:04)
--- NOTE | 2022-06-11 13:23 | CASEMGMT ---
Social Work Insurance approved with NRD 06/18. SW spoke with pt and pt requesting to DC sooner. IDT agreeable to DC 06/13. Pt will need a FWW and electing cardiac rehab with [facility]. [place] [facility] [place] [facility]. Pt has f/u appt with [facility] on 06/24 to get order for cardiac rehab. Plan: DC home with 06/13, FWW, cardiac rehab Farrah Murguia, [employer] TE[employer]IST [employer]
[2022-06-11 14:31] VITALS: BP 118/69; PULSE 84; RESP 17; TEMP 36.4; O2SAT 99
--- NOTE | 2022-06-11 14:42 | DS.PCM_ITS ---
Providers Date of Admission: 05/28/22 Reason For Visit: MVR AVR REPLACEMENT Diagnosis Discharge Diagnosis (1) Debility: Status: Acute Code(s): R53.81 - Other malaise (2) Mitral regurgitation: Status: Acute Code(s): I34.0 - Nonrheumatic mitral (valve) insufficiency (3) Aortic insufficiency: Status: Acute Code(s): I35.1 - Nonrheumatic aortic (valve) insufficiency (4) Alcohol abuse: Status: Acute Code(s): F10.10 - Alcohol abuse, uncomplicated (5) Hypertension: Status: Chronic Code(s): I10 - Essential (primary) hypertension (6) Hyperlipidemia: Status: Acute Code(s): E78.5 - Hyperlipidemia, unspecified (7) Atrial fibrillation: Status: Acute Code(s): I48.91 - Unspecified atrial fibrillation (8) Congenital heart disease: Status: Acute Code(s): Q24.9 - Congenital malformation of heart, unspecified (9) Nonischemic cardiomyopathy: Status: Acute Code(s): I42.8 - Other cardiomyopathies (10) Ascending aorta dilatation: Status: Acute Code(s): I77.810 - Thoracic aortic ectasia (11) Severe pulmonary hypertension: Status: Acute Code(s): I27.20 - Pulmonary hypertension, unspecified Plan 52 year old male with below past medical history hospitalized for mechanical MVR, mechanical AVR, ascending aorta replacement, aortic arch replacement, MAZE procedure, complicated by anemia requiring transfusion, admitted to TCU with debility, here for rehabilitation, strengthening, prior to discharge home with . * Debility - PT/OT. * Dysphagia - ST. * Pain - Tylenol 1000mg q6h prn pain (1-10). * Bowel - Lactulose 20gm bid. * Adult immunization - Administer pneumonia vaccine, covid19 vaccine, flu vaccine as appropriate. * DVT prophylaxis - already on warfarin. * Atrial fibrillation - Metoprolol succinate 25mg daily, Amiodarone 200mg daily, Warfarin 2.5mg daily, monitor INR. * Postoperative anemia - Ferrous sulfate 325mg bid, Vitamin C 500mg daily thru 06/12/2022. * Hyperlipidemia - Atorvastatin 40mg qhs. * Severe pulmonary hypertension - Sildenafil 100mg daily. * BPH - Tamsulosin 0.4mg daily. * Chronic diastolic heart failure - Metoprolol succinate 25mg daily, Torsemide 40mg daily, 1500ml fluid restriction. * Insomnia - Trazodone 50mg qhs, stable chronic fpc use, GDR not recommended. * Vision loss - Schedule Ophth appointment. Medications at Discharge Home Medications metoprolol succinate 25 mg tablet,extended release 24 hr 25 mg PO DAILY BP 05/28/22 sildenafil 100 mg tablet 100 mg PO DAILY Check with primary doctor 05/28/22 torsemide 20 mg tablet 40 mg PO DAILY Heart 05/28/22 acetaminophen 500 mg tablet 1,000 mg PO Q8 #0 tabs 06/11/22 amiodarone 200 mg tablet 200 mg PO DAILYCM 30 days #30 tabs 06/11/22 ascorbic acid (vitamin C) 500 mg tablet 500 mg PO DAILYCM 30 days #30 tabs 06/11/22 atorvastatin 40 mg tablet 40 mg PO QHS 30 days #30 tabs 06/11/22 dextromethorphan-guaifenesin 10 mg-100 mg/5 mL oral syrup 10 ml PO Q6H PRN PRN COUGH #0 mL 06/11/22 ferrous sulfate 325 mg (65 mg iron) tablet (FeroSul) 325 mg PO BIDCM 30 days #60 tabs 06/11/22 potassium chloride 20 mEq tablet,extended release(part/cryst) (Klor-Con M) 20 meq PO DAILYCM 30 days #30 tabs 06/11/22 tamsulosin 0.4 mg capsule 0.4 mg PO DAILY@0830 30 days #30 caps 06/11/22 tramadol 50 mg tablet 50 mg PO Q6H PRN PRN Pain Score 4-10 7 days #28 tabs 06/11/22 trazodone 50 mg tablet 50 mg PO QHS 30 days #30 tabs 06/11/22 warfarin 1 mg tablet (Jantoven) 3.5 mg PO DINNER 30 days #105 tabs 06/11/22 Hospital Course Operations - (See below.) Procedures None Summary of Care Provided Minutes Spent on Discharge: 35 Hospital Course: 52 year old male with below past medical history hospitalized for mechanical M VR, mechanical AVR, ascending aorta replacement, aortic arch replacement, MAZE procedure, complicated by anemia requiring transfusion, admitted to TCU with debility, here for rehabilitation, strengthening, prior to discharge home with . Discharge home with 06/13/2022, [facility], Cardiac rehab. Physical Exam Const alert General Appearance: cooperative HEENT normocephalic Eyes PERRL and EOMs intact bilaterally Neck supple, no JVD and no carotid bruits Resp normal respiratory effort, normal air movement and clear to auscultation bilaterally Cardio regular rate and regular rhythm GI normal to inspection, nondistended, normoactive bowel sounds, non-tender and non-distended Extremity normal capillary refill General Extremity: Negative for edema Skin no rashes or lesions noted General Skin Exam: no breakdown Psych affect normal Appearance: appropriate Weight / BMI Weight Weight: 107.229 kg Body Mass Index (BMI) 31.1 ABG / Lab / Microbiology Data Result Diagrams: 06/05/22 06:50 06/07/22 05:28 Laboratory: Laboratory Results - last 24 hr 06/11/22 05:21: PT 26.0 H, INR 2.4 Microbiology: Microbiology 06/01/22 05:54 Nasal Secretion SARS-CoV-2 Antigen (Rapid) - Final 05/31/22 13:06 Nasal Secretion SARS-CoV-2 Antigen (Rapid) - Final 05/28/22 18:50 Nasal Secretion SARS-CoV-2 Antigen (Rapid) - Final D/C Instructions Discharge Diet: No restrictions Discharge Activity: Return to Normal Activity, May Shower and Use Walker Weight Bearing Status: Weight bearing as tolerated Call your doctor if you observe: Fever of 101 or Higher, Inability to urinate, Inability to have a bowel movement, Shortness of breath, Dizziness, Fainting spells, Swelling in the ankles, Chest pain and Uncontrolled pain Additional Instructions: Discharge home with 06/13/2022, [facility], Cardiac rehab. Please Follow Up With: Jin Munroe MD (will see Alayna Swan NP) When: As scheduled. Meaningful Use Info Meaningful Use Diagnoses (Choose all that apply): None applicable Discharge Plan Admission Admit Date/Time: 05/28/22 14:00 Primary Reason for Your Visit: Debility. Attending Provider: Sergio Kim Chi Instructions Additional Instructions / Restrictions: Discharge home with 06/13/2022, [facility], Cardiac rehab. Discharge Orders/Prescriptions Prescriptions: New amiodarone 200 mg Tablet 200 mg PO DAILYCM 30 Days Qty: 30 0RF ascorbic acid (vitamin C) 500 mg Tablet 500 mg PO DAILYCM 30 Days Qty: 30 0RF atorvastatin 40 mg Tablet 40 mg PO QHS 30 Days Qty: 30 0RF ferrous sulfate [FeroSul] 325 mg (65 mg iron) Tablet 325 mg PO BIDCM 30 Days Qty: 60 0RF trazodone 50 mg Tablet 50 mg PO QHS 30 Days Qty: 30 0RF acetaminophen 500 mg Tablet 1,000 mg PO Q8 Qty: 0 0RF tamsulosin 0.4 mg Capsule 0.4 mg PO DAILY@0830 30 Days Qty: 30 0RF dextromethorphan-guaifenesin 10-100 mg/5 mL Syrup 10 ml PO Q6H PRN PRN (Reason: COUGH) Qty: 0 0RF tramadol 50 mg Tablet 50 mg PO Q6H PRN PRN (Reason: Pain Score 4-10) 7 Days Qty: 28 0RF potassium chloride [Klor-Con M20] 20 mEq Tablet,Er Particles/Crystals 20 meq PO DAILYCM 30 Days Qty: 30 0RF warfarin [Jantoven] 1 mg Tablet 3.5 mg PO DINNER 30 Days Qty: 105 0RF Continued torsemide 20 mg tablet 40 mg PO DAILY sildenafil 100 mg tablet 100 mg PO DAILY metoprolol succinate 25 mg Tablet Extended Release 24 Hr 25 mg PO DAILY Discontinued atorvastatin 40 mg tablet 40 mg PO QHS acetaminophen 325 mg Tablet 325 mg PO Q6H PRN (Reason: Pain) lactulose 10 gram/15 mL Syrup 20 g PO BID trazodone 50 mg Tablet 50 mg PO QHS amiodarone 200 mg tablet 200 mg PO DAILY warfarin 2.5 mg Tablet 2.5 mg PO DAILY ascorbic acid (vitamin C) 500 mg Tablet 500 mg PO DAILY tamsulosin 0.4 mg Capsule 0.4 mg PO DAILY ferrous sulfate 325 mg (65 mg iron) Tablet 325 mg PO BID Referrals / Follow Up: [facility] [Other] - 07/20/22 10:30 am (Arrive to [facility] Registration Desk) [facility] [Other] - 10/17/23 10:00 am (Arrive at 9:45 am) Dr. Hodgson [Other] - 07/09/22 8:50 am Disposition Disposition (needs filled in before D/C Order can be placed): Home, Self Care
--- NOTE | 2022-06-11 16:04 | CASEMGMT ---
Social Work BIMS () and PHQ-9 (08/21) completed for MDS assessment. Farrah Murguia MSW CAT[employer]OGUE [employer]
[2022-06-11] MEDS: Warfarin 3 MG, Warfarin 0.5 MG 3.5 MG PO (17:27)
[2022-06-11] MEDS: guaiFENesin Dm 10 ML UDC PO (20:43)
[2022-06-11] MEDS: traMADol 50 MG Tablet PO (20:43)
[2022-06-11] MEDS: Atorvastatin Calcium 40 MG Tablet PO (20:44)
[2022-06-11] MEDS: traZODone 50 MG Tablet PO (20:44)
[2022-06-11 23:00] VITALS: PULSE 82; RESP 16; O2SAT 97
[2022-06-12 05:54] VITALS: BP 112/65; PULSE 82; RESP 18; TEMP 37.1; O2SAT 96
[2022-06-12 05:59] VITALS: BP 112/65; PULSE 86
[2022-06-12] MEDS: Acetaminophen 500 MG Tablet 1000 MG PO ×3 (05:59→20:50)
[2022-06-12] MEDS: Metoprolol(XL)Succ 25 MG Tablet PO (05:59)
[2022-06-12] MEDS: Furosemide 80 MG Tablet PO (06:00)
[2022-06-12] MEDS: Potassium Chloride Oral Tablet 20 MEQ PO (08:07)
[2022-06-12] MEDS: Tamsulosin HCl 0.4 MG Capsule PO (08:07)
[2022-06-12] MEDS: Ascorbic Acid 500 MG Tablet PO (08:07)
[2022-06-12] MEDS: Amiodarone 200 MG Tablet PO (08:07)
--- NOTE | 2022-06-12 12:50 | NURSING ---
Pt refused Labs this am d/t Lab trying x2 and unsuccessful. Dr. Kim updated and okay to draw labs tomorrow per pt's request.
[2022-06-12 16:00] VITALS: BP 119/60; PULSE 82; RESP 16; TEMP 36.2; O2SAT 99
[2022-06-12] MEDS: Warfarin 3 MG, Warfarin 0.5 MG 3.5 MG PO (17:02)
[2022-06-12 20:50] VITALS: PULSE 80; RESP 16; O2SAT 96
[2022-06-12] MEDS: traZODone 50 MG Tablet PO (20:50)
[2022-06-12] MEDS: Atorvastatin Calcium 40 MG Tablet PO (20:50)
[2022-06-13 06:04] VITALS: BP 105/60; PULSE 82
[2022-06-13] MEDS: Metoprolol(XL)Succ 25 MG Tablet PO (06:04)
[2022-06-13] MEDS: Furosemide 80 MG Tablet PO (06:04)
[2022-06-13] MEDS: Acetaminophen 500 MG Tablet 1000 MG PO (06:05)
[2022-06-13 06:44] LABS: Absolute Lymphocyte Count 1.42 X10^3/uL (0.83-4.51); Absolute Neutrophil Count 4.5 X10^3/uL (2.0-7.7); Basophil# 0.04 X10^3/uL; Basophil% 0.6 % (0-1); Eosinophil# 0.26 X10^3/uL; Eosinophils% 3.9 % (0-5); Hematocrit 28.3 % (40-54); Hemoglobin 8.6 g/dL (13.0-16.5); Lymphocyte # 1.42 X10^3/ul (0.83-4.51); Lymphocyte % 21.3 % (19-41); Mean Corp Hgb Conc 30.4 g/dL (32-36); Mean Corpuscular Volume 85.5 fL (80-94); Mean Platelet Vol. 8.5 fl (6.2-12.0); Monocyte# 0.45 X10^3/uL; Monocyte% 6.8 % (0-10); NRBC Flagged by Analyzer 0 % (0-5); Neutrophil # 4.47 X10^3/uL (2.7-7.7); Neutrophil % 67.1 % (47-70); Platelet Count 201 K/mm3 (150-450); RBC Distribution Width CV 17.1 % (11.6-14.6); RBC Distribution Width SD 52.7 fl (35.1-43.9); Red Blood Count 3.31 M/mm3 (4.6-6.2); White Blood Count 6.7 K/mm3 (4.4-11.0)
[2022-06-13 06:47] VITALS: BP 105/60; PULSE 82; RESP 16; TEMP 36.6; O2SAT 98
[2022-06-13 06:55] LABS: International Normalized Ratio 3.1; Prothrombin Time (Protime)PT. 31.3 SECONDS (11.7-14.9)
[2022-06-13 07:12] LABS: Anion Gap 5 (5-15); BUN 7 mg/dL (7-18); BUN/Creat Ratio 8.1 RATIO (10-20); Calcium,Total 8.4 mg/dL (8.5-10.1); Chloride 109 mmol/L (98-107); Creatinine, Serum 0.87 mg/dL (0.70-1.30); EST Glomerular Filtration Rate 98 mL/min (>60); Est Glom Filt Rate - Afr Amer 119 mL/min (>60); Estimated Creatinine Clearance 110.97 ml/min; Glucose 86 mg/dL (74-106); Sodium Level 142 mmol/L (136-145)
[2022-06-13] MEDS: Amiodarone 200 MG Tablet PO (08:13)
[2022-06-13] MEDS: Tamsulosin HCl 0.4 MG Capsule PO (08:13)
[2022-06-13] MEDS: Potassium Chloride Oral Tablet 20 MEQ PO (08:13)
[2022-06-13 09:32] VITALS: PULSE 83; O2SAT 93
[2022-06-13 10:00] VITALS: BP 102/61; PULSE 79; RESP 18; TEMP 36.6; O2SAT 93
== END 2022-06-13 10:15 | disposition home or self-care (01) | DRG 949 ==
PROVIDERS: Admitting Provider Family Medicine Geriatric Medicine; Visit Provider Family Medicine Geriatric Medicine
DX: Z48.812 Encounter for surgical aftercare following surgery on the circulatory system (principal); I42.8 Other cardiomyopathies; I50.32 Chronic diastolic (congestive) heart failure; I27.20 Pulmonary hypertension, unspecified; I11.0 Hypertensive heart disease with heart failure; I48.91 Unspecified atrial fibrillation; I77.810 Thoracic aortic ectasia; F10.20 Alcohol dependence, uncomplicated; I08.0 Rheumatic disorders of both mitral and aortic valves; H54.7 Unspecified visual loss; E78.5 Hyperlipidemia, unspecified; F10.10 Alcohol abuse, uncomplicated; Q24.9 Congenital malformation of heart, unspecified; Z95.2 Presence of prosthetic heart valve; Z95.810 Presence of automatic (implantable) cardiac defibrillator; N40.0 Benign prostatic hyperplasia without lower urinary tract symptoms; Z79.899 Other long term (current) drug therapy; Z79.01 Long term (current) use of anticoagulants
CPT/HCPCS: 36415; 80048; 82962; 85025; 85610; 87811; 92526; 92610; 97110; 97112; 97116; 97163; 97166; 97530; 97535; 97802